=== PATIENT | female | born 1970 | race Caucasian/White ===

== ENCOUNTER 2017-09-23 11:50 | Day surgery (SDC) | payer BC ==
[~2017-09-23 11:50] MED LIST: Lactated Ringers 1,000 ML IV SCH; Sodium Chloride 0.9% 10 ML Syringe FLUSH PRN
[2017-09-23] MEDS ORDERED: fentaNYL 100 MCG/2 ML SDV ONE ×2 (13:23→13:27)
[2017-09-23] MEDS ORDERED: Propofol 200 MG/20 ML SDV ONE ×3 (13:24→13:46)
[2017-09-23] MEDS ORDERED: Midazolam 1 MG/ML 2 ML SDV ONE ×2 (13:24→13:27)
--- NOTE | 2017-09-23 13:25 | PCM.HPR ---
H & P Addendum review - H & P Addendum Review Date of Original H & P: 09/20/17 Date Reviewed: 09/23/17 Time Reviewed: 13:20 Patient was Examined: No Changes
--- NOTE | 2017-09-23 13:56 | PCM.OPNOTE ---
- General Post-Op/Procedure Note Date of Surgery/Procedure: 09/23/17 Operative Procedure(s): Colonoscopy Findings: Anal fissure Pre Op Diagnosis: Hematochezia Post-Op Diagnosis: Same Anesthesia Technique: MAC Primary Surgeon: Trent Black Anesthesia Provider: Adriana Vizcarra EBTarsha in mLs: 0 Complications: None Condition: Good Free Text/Narrative:: Intake & Output 09/22/17 09/23/17 09/23/17 22:59 06:59 14:59 Intake Total 800 Balance 800
[2017-09-23] MEDS ORDERED: Ondansetron 4 MG/2 ML SDV IVPUSH ONE (14:12)
[2017-09-23 16:41] VITALS: BP 121/81
--- NOTE | 2017-09-28 08:19 | OR ---
Date of Procedure: 09/23/2017 PREOPERATIVE DIAGNOSES: 1. Rectal pain. 2. Hematochezia. POSTOPERATIVE DIAGNOSIS: Anal fissure. PROCEDURE: Colonoscopy. ANESTHESIA: IV sedation. PROCEDURE IN DETAIL: The patient was brought in to the procedure room, where she was placed on her left side and IV sedation administered. Digital rectal exam was performed which was normal. Examination of her anal canal at the end of the procedure does reveal a healing anal fissure in the posterior midline without active bleeding. The scope was inserted and advanced to the level of the cecum without difficulty. Cecal position was confirmed by identifying the appendiceal lumen and the ileocecal valve. Prep was good and surfaces were well visualized. Upon withdrawing the scope, the ascending, transverse, and descending colon were normal in appearance. Sigmoid colon and rectum were normal. Retroflexion showed a small fissure remaining. Air was removed and the scope withdrawn. The patient tolerated the procedure well and returned to recovery in stable condition. It appears that the fissure is healing and no further recommendations are given at this time. She should consider routine colon screening again in 10 years. DAWSON KINNEY MD /[id number]
== END 2017-09-23 15:38 | disposition home or self-care (01) ==
LOC: LL.SDS 11:50
PROVIDERS: ATTEND Surgery
DX: K60.2 Anal fissure, unspecified (principal); K59.09 Other constipation; E78.5 Hyperlipidemia, unspecified; J30.2 Other seasonal allergic rhinitis; Z79.899 Other long term (current) drug therapy; Z88.8 Allergy status to other drugs, medicaments and biological substances; Z91.040 Latex allergy status; Z98.51 Tubal ligation status
CPT/HCPCS: 45378; J2250; J2405; J2704; J3010; J7050; J7120

== ENCOUNTER 2023-06-24 07:54 | Day surgery (SDC) | payer BC ==
[2023-06-24] MEDS ORDERED: Propofol 200 MG/20 ML SDV ONE ×2 (08:01→09:53)
[2023-06-24] MEDS: Lactated Ringers 1,000 ML IV SCH (08:30)
[2023-06-24 10:42] VITALS: BP 105/68; PULSE 63
[2023-06-24] MEDS ORDERED: Sodium Chloride 0.9% 10 ML Syringe FLUSH PRN (11:00)
[2023-06-24] MEDS ORDERED: Lactated Ringers 1,000 ML IV SCH (11:00)
== END 2023-06-24 10:37 | disposition home or self-care (01) ==
LOC: LL.SDS 07:54
PROVIDERS: ATTEND Surgery
DX: Z12.11 Encounter for screening for malignant neoplasm of colon (principal); Q43.8 Other specified congenital malformations of intestine; I10 Essential (primary) hypertension; E78.49 Other hyperlipidemia; K21.9 Gastro-esophageal reflux disease without esophagitis; F34.1 Dysthymic disorder; Z80.0 Family history of malignant neoplasm of digestive organs; Z88.0 Allergy status to penicillin; Z88.8 Allergy status to other drugs, medicaments and biological substances; Z91.040 Latex allergy status
CPT/HCPCS: 00812; J2704; J7120